=== PATIENT | female | born 1975 | race Two or more races ===

== ENCOUNTER 2020-05-28 21:54 | Emergency (ER) | payer SELFPAY ==
[~2020-05-28] VITALS: Ht 165.1 cm; Wt 49.9 kg
[2020-05-28 22:05] VITALS: BP 138/64
[2020-05-28] MEDS ORDERED: DIPH25CA83 PO (22:15)
[2020-05-28] MEDS ORDERED: PRED20TA PO (22:15)
[2020-05-28] MEDS ORDERED: diphenhydrAMINE HCL 25 MG CAPSULE ONE (22:16)
[2020-05-28] MEDS ORDERED: predniSONE 20 MG TABLET ONE (22:16)
[2020-05-28] MEDS ORDERED: diphenhydrAMINE HCL 25 MG CAPSULE PO ONE (22:30)
[2020-05-28] MEDS ORDERED: predniSONE 20 MG TABLET PO ONE (22:30)
== END 2020-05-28 22:29 | disposition home or self-care (01) ==
LOC: ER 21:56
DX: L30.9 Dermatitis, unspecified (principal); I25.2 Old myocardial infarction; F20.9 Schizophrenia, unspecified; F31.9 Bipolar disorder, unspecified
CPT/HCPCS: 99283; J7512; Q0163